=== PATIENT | male | born 1945 | race Caucasian/White ===

== ENCOUNTER 2023-06-06 13:03 | Outpatient (REF) | payer MEDICARE, SELFPAY ==
--- NOTE | ~2023-06-06 | XR_ITS ---
EXAMINATION: XR lumbar spine 4V min CLINICAL INFORMATION: Reason for Exam M54.9 - Dorsalgia, unspecified COMPARISON: None TECHNIQUE: 4 views of the lumbar spine FINDINGS: 5 nonrib-bearing lumbar-type vertebral bodies. Generalized osteopenia which somewhat limits evaluation. Age-indeterminate compression deformity of the L1 vertebral body with approximately 20% loss of vertebral body height. Vertebral body heights are otherwise maintained. Retrolisthesis of L5 on S1, no subluxation between flexion and extension views. Mild multilevel degenerative disc disease with loss of disc space height, facet arthropathy and disc osteophyte complexes. This is worst at T12/L1, L5/S1. Atherosclerosis of the abdominal aorta. Right upper quadrant cholecystectomy clips. Radiopaque metallic density object projects over the pelvis in the left sacrum and iliac left ilium. These may reflect shrapnel. Correlate with clinical history. XR/XR lumbar spine 4V min IMPRESSION: * Spondylosis of the lumbar spine, as above detailed. * Age-indeterminate compression deformity of the L1 vertebral body with approximately 20% loss of vertebral body height. * Retrolisthesis of L5 on S1, no subluxation between flexion and extension views. * Radiopaque metallic density object projects over the pelvis in the left sacrum and iliac left ilium. These may reflect shrapnel. Correlate with clinical history.
== END 2023-06-06 13:04 | disposition home or self-care (01) ==
LOC: HO.HOSX 13:03
PROVIDERS: Visit Provider Physician Assistant
DX: M54.9 Dorsalgia, unspecified (principal); M85.80 Other specified disorders of bone density and structure, unspecified site
CPT/HCPCS: 72110; 99202

== ENCOUNTER 2023-06-06 13:03 | Outpatient (AMB) | payer MEDICARE, SELFPAY ==
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
== END 2023-06-06 15:06 | disposition home or self-care (01) ==
PROVIDERS: Referring Provider Family Medicine; Visit Provider Physician Assistant
DX: M54.9 Dorsalgia, unspecified (principal)
CPT/HCPCS: 99204

== ENCOUNTER 2023-10-21 11:21 | Outpatient (AMB) | payer MEDICARE, SELFPAY ==
--- NOTE | 2023-10-21 11:44 | A.SPINEOV_ITS ---
Intake Visit Reasons: Discuss Surgery Intake Note: Mr. Wallace is here to discuss surgery. Bandsaw Operator Required: No Assessment & Plan Assessment & Plan (1) Sacroiliac joint dysfunction of right side: Code(s): M53.3 - Sacrococcygeal disorders, not elsewhere classified Category: Medical Plan Dear colleague, On 10/21/2023, I saw for follow-up Reji Wallace. He was scheduled for a right SI joint fusion but decided to postpone due to lack of a support system postoperatively. I explained to him again the expected postoperative course which would be walking around with a walker and I do not expect that he needs a lot of supportive help. We discussed the procedure again and it made him aware that he may need a an L5-S1 fusion if the SI joint fusion is not helping. He is rescheduled for April 2024. I spent 25 minutes in this consult to review imaging and discussing plan of care. Toni Beatty MD, PhD [facility] Trained Neurosurgeon Director, [facility] Coding Level of Care Code Est Pt Level 3 (82590) Diagnoses Sacroiliac joint dysfunction of right side M53.3
== END 2023-10-21 12:05 | disposition home or self-care (01) ==
PROVIDERS: Visit Provider Neurological Surgery
DX: M53.3 Sacrococcygeal disorders, not elsewhere classified (principal)
CPT/HCPCS: 99213

== ENCOUNTER → 2023-10-21 11:21 | Outpatient (BNVA) | payer MEDICARE, SELFPAY | PROVIDERS: Visit Provider Neurological Surgery | DX: M53.3 Sacrococcygeal disorders, not elsewhere classified (principal) | CPT/HCPCS: 99212 ==

== ENCOUNTER 2023-12-23 15:05 | Outpatient (AMB) | payer MEDICARE, SELFPAY ==
--- NOTE | 2023-12-23 15:43 | A.SPINEOV_ITS ---
Intake Visit Reasons: discuss surgery denial Intake Note: Mr. Wallace is here to Discuss surgery denial. Audiovisual Technician Required: No Allergies Unable to Assess Allergy (Verified 12/23/23 15:46) Assessment & Plan Assessment & Plan (1) Sacroiliac joint dysfunction of right side: Code(s): M53.3 - Sacrococcygeal disorders, not elsewhere classified Category: Medical Plan Mr Wallace is back in the office today because his insurance denied his SI joint fusion on the right side. Please see my last note for the specifics of his problem but he has been dealing with an intense pain across his back as well as along the right SI joint. He has signs of SI joint instability after his fall. His insurance company denied the surgery so he is back here today to were clearly document enough findings that will appease their review committee. As outlined in my previous note he has had intense levels of pain, has been taking oxycodone to deal with it as well as previously [id number] medications, injections etc.. One of those injections was an SI joint injection which did give him about 70-80% relief. The other injections were median branch blocks which also gave him significant relief. Has an overlapping diagnosis of severe degenerative disc disease at L5-S1 so both of the responses to these injections make sense. On exam he has positive Gaenslen test, positive MILLA test, positive finger Aishwarya test as well as tenderness over the SI joint. His pain level has been a 10/10 over the last few months and he is very disappointed at how the surgery was canceled as it is just postponing his misery. They are requesting a CT scan or some other kind of imaging of the SI joint so I will order a noncontrast CT at [facility] and we can have it sent to us by mail and review it for him. Once that is all completed we will resubmit for surgery right SI joint fusion. We also discussed the fact that because of his severe disc collapse at L5-S1, he may end up needing fusion of that down the road as well. Total amount of time spent in this visit was 20 minutes in discussion of symptoms, ordering CT results and subsequent plan of care Luis Antonio Beatty MD,PhD [facility] Orders: Orders CT bony pelvis Today M53.3 - Sacrococcygeal disorders, not elsewhere classified Coding Level of Care Code Est Pt Level 3 (96054) Diagnoses Sacroiliac joint dysfunction of right side M53.3
== END 2023-12-23 16:49 | disposition home or self-care (01) ==
PROVIDERS: Visit Provider Physician Assistant
DX: M53.3 Sacrococcygeal disorders, not elsewhere classified (principal)
CPT/HCPCS: 99213

== ENCOUNTER → 2023-12-23 15:05 | Outpatient (BNVA) | payer MEDICARE, SELFPAY | PROVIDERS: Visit Provider Physician Assistant | DX: M53.3 Sacrococcygeal disorders, not elsewhere classified (principal) | CPT/HCPCS: 99212 ==